=== PATIENT | female | born 1985 ===

== ENCOUNTER 2018-06-28 07:54 | Inpatient (IN) | payer MEDICAID, SELFPAY ==
[2018-06-28 08:58] VITALS: BMI 29.2
[2018-06-28] MEDS ORDERED: Lactated Ringer's 1,000 ML IV ONE (08:58)
[2018-06-28] MEDS ORDERED: Oxytocin 30 UNIT 30 UNITS/500 ML BAG IV ONE (09:00)
[2018-06-28] MEDS ORDERED: OXYTOCIN/0.9 % NS 20 UNIT/1,000 ML BAG IV SCH (09:00)
[2018-06-28] MEDS ORDERED: Lidocaine 1% Inj (20ml) ONE (09:27)
[2018-06-28] MEDS ORDERED: Fentanyl/Bupivacaine HCl 250 ML EPI ONE (09:30)
[2018-06-28 10:03] LABS: BASO # 0.1 K/uL (0.0-0.2); BASO % 0.5 % (0.0-2.0); EOS % 0.1 % (0.0-4.0); HEMOGLOBIN 12.9 g/dL (12.0-16.0); LYMPH # 1.7 K/uL (1.0-4.3); LYMPH % 15.8 % (20.0-40.0); MEAN CELL VOLUME 88.2 fl (81.0-99.0); MEAN CORPUSCULAR HEMOGLOBIN 29.4 pg (27.0-31.0); MEAN CORPUSCULAR HGB CONC 33.4 g/dL (33.0-37.0); MEAN PLATELET VOLUME 9.2 fl (7.2-11.7); MONO # 0.5 K/uL (0.0-0.8); MONO % 4.8 % (0.0-10.0); NEUT # 8.7 K/uL (1.8-7.0); NEUT % 78.8 % (50.0-75.0); NRBC % 0.1 % (0.0-0.0); RBC 4.38 Mil/uL (3.80-5.20); RED CELL DISTRIBUTION WIDTH 14.7 % (11.5-14.5)
[2018-06-28 10:11] LABS: ALBUMIN 3.9 g/dL (3.5-5.0); ALT/SGPT 16 U/L (9-52); AST/SGOT 21 U/L (14-36); BLOOD UREA NITROGEN 7 mg/dl (7-17); CALCIUM 9.9 mg/dL (8.4-10.2); GFR NON-AFRICAN AMERICAN > 60
[2018-06-28] MEDS: Lactated Ringer's 1,000 ML IV SCH ×2 (10:15→11:24)
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
--- NOTE | 2018-06-28 13:21 | OBDS ---
DELIVERY PERSONNEL Delivery Doctor: Italo Diaz MD Deckhand Clam Dredge: Yolanda Allen RN Resident: Harris MD MATERNAL INFORMATION Medications in Delivery: Pitocin Provider Comments: of live female infant over intact perineum in OA presentation, 05/16, followed by shoulders and rest of infant atraumatically, mouth and nose suctioned, cord clamped and cut, infa nt placed in warmer, fundus firm, DDF=[id number], perineal abrasion repaired wtih 3-0 Vicryl rapide, pt ot herwise tolerated procedure well LABOR SUMMARY EDC: 06/21/2018 00:00 No. Babies in Womb: 1 Attempted: No Labor Anesthesia: Intrathecal LABOR INFORMATION Reason for Induction: Postterm Onset of Labor: 06/28/2018 10:25 Group B Beta Strep: Negative Steroids Given: None Reason Steroids Not Administered: Not Applicable MEMBRANES Membranes Rupture Method: Artificial Rupture of Membranes: 06/28/2018 10:25 Amniotic Fluid Color: Clear Amniotic Fluid Amount: Scant Amniotic Fluid Odor: None BABY A INFORMATION Born in Route : No : N/A PRESENTATION/POSITION BABY A Presentation: Cephalic INFANT INFORMATION BABY A Gestational Age at Delivery: 41.0 Gestational Status: Term IDENTIFICATION/MEDS BABY A ID Band Number: [id number] ID Band Location: Left Leg; Left Arm
[2018-06-28] MEDS ORDERED: Benzocaine/Menthol SPRAY TOP PRN (13:26)
[2018-06-29 06:45] LABS: BASO % 0.2 % (0.0-2.0); EOS % 0.5 % (0.0-4.0); HEMOGLOBIN 9.6 g/dL (12.0-16.0); LYMPH # 2.4 K/uL (1.0-4.3); MEAN CELL VOLUME 88.8 fl (81.0-99.0); MEAN CORPUSCULAR HEMOGLOBIN 30.2 pg (27.0-31.0); MEAN PLATELET VOLUME 8.4 fl (7.2-11.7); MONO # 0.6 K/uL (0.0-0.8); MONO % 7.2 % (0.0-10.0); NEUT # 5.6 K/uL (1.8-7.0); NEUT % 64.1 % (50.0-75.0); RBC 3.19 Mil/uL (3.80-5.20); RED CELL DISTRIBUTION WIDTH 14.8 % (11.5-14.5); WHITE BLOOD COUNT 8.7 K/uL (4.8-10.8)
--- NOTE | 2018-06-29 09:52 | OBPPN ---
Datetime: 06/29/2018 06:23 PP Pain Prov: Within normal limits PP Nausea Prov: Denies PP Flatus Prov: Yes PP BM Prov: No PP Breasts Prov: Not Done PP Heart Prov: Normal PP Lungs Prov: Normal PP Abdomen/Uterus Prov: Normal PP Lochia Prov: Normal PP Vulva/Perineum Prov: Normal PP CVA Tenderness Prov: Normal PP Extremities Prov: Normal PP C/S Incision Prov: Not Applicable PP Progress Prov: Normal PP Impression Prov: Normal progression PP Plan Prov: Continue present management PP Progress Note Prov: Post- note S: Patient seen this morning at bedside, she is now s/p on 06/28/18, today is PPD 1. Pt reports no complaints today. Reports minimal abdominal pain but is tolerable with pain medication. She is tolerating PO intake w/o N/V, ambulating to bathroom without any difficulties, lochia is jose lar to menses in volume, Breast feeding w/o difficulty and supplementing with formula. Patient report s flatus but no BM as of yet. O: VS WNL PE: Patient is resting comfortably in her hospital bed. In no acute distress. HEENT: EOMI, Mucous membrane moist. RESP: Clear air entry bilaterally. CV: RRR, no murmurs, gallops or rubs. ABD: soft, non-tender, uterus firm below umbilicus LE: No edema, Ar's negative. A/P: 32 y/o now s/p on 06/28/18, today is PPD1- normal post- progression. -Encourage ambulation -Encouraged to continue -PNV 1 tab PO daily -Ibuprofen 600mg 1 tab Q6h prn for mild-mod pain -Anticipate discharge tomorrow, 06/30/18 Lidia Bermudez MD PGY1 IP PP Procedures: None
--- NOTE | 2018-06-30 09:45 | OBPPN ---
Datetime: 06/30/2018 06:04 PP Pain Prov: Within normal limits PP Nausea Prov: Denies PP Flatus Prov: Yes PP BM Prov: No PP Breasts Prov: Not Done PP Heart Prov: Normal PP Lungs Prov: Normal PP Abdomen/Uterus Prov: Normal PP Lochia Prov: Normal PP Vulva/Perineum Prov: Normal PP CVA Tenderness Prov: Not Done PP Extremities Prov: Normal PP C/S Incision Prov: Not Applicable PP Progress Prov: Normal PP Impression Prov: Normal progression PP Plan Prov: Continue present management; Discharge PP Progress Note Prov: S: Patient seen this morning at bedside, she is now s/p on 06/28, today is PPD 2. Pt reports no complaints today. Reports minimal abdominal pain but states is bet ter with pain medication. She is tolerating PO intake w/o N/V, ambulating to bathroom without any dif ficulties, lochia is less than menses in volume, Breast feeding w/o difficulty and supplementing with formula. Patient reports flatus but no BM as of yet. O: VS WNL PE: Patient is resting comfortably in her hospital bed. In no acute distress. HEENT: EOMI, Mucous membrane moist. RESP: Clear air entry bilaterally. CV: RRR, no murmurs, gallops or rubs. ABD: soft, non-tender, uterus firm below umbilicus LE: No edema, Ar's negative. A/P: 32 y/o now s/p on 06/28/18, today is PPD2- normal post- progression. Patient is stable to be D/C home. - Encourage ambulation - Encourage to continue - PNV 1 tab PO daily - Ibuprofen 600mg 1 tab Q6h prn for mild-mod pain - D/C home today, 06/30/18 Lidia Bermudez MD PGY1 The patient was seen with resident I agree with the note IP PP Procedures: None Vital Signs Provider PP: Reviewed; Within Normal Limits
[2018-07-01 01:25] VITALS: BP 113/71; PULSE 76; RESP 20; TEMP 98.6; O2SAT 98
== END 2018-06-30 17:50 | disposition home or self-care (01) | DRG 373 ==
LOC: H.EROB2 07:54 → H.L&D 08:58 → H.OB/GYN 16:00
PROVIDERS: ADMIT Obstetrics & Gynecology; ATTEND Obstetrics & Gynecology
PROC: 10E0XZZ Delivery of Products of Conception, External Approach (ICD-10-PCS; principal; 2018-06-28)
PROC: 0HQ9XZZ Repair Perineum Skin, External Approach (ICD-10-PCS; 2018-06-28)
PROC: 10907ZC Drainage of Amniotic Fluid, Therapeutic from Products of Conception, Via Natural or Artificial Opening (ICD-10-PCS; 2018-06-28)
PROC: 4A1HXCZ Monitoring of Products of Conception, Cardiac Rate, External Approach (ICD-10-PCS; 2018-06-28)
DX: O48.0 Post-term pregnancy (principal); O70.0 First degree perineal laceration during delivery; Z3A.41 41 weeks gestation of pregnancy; Z37.0 Single live birth; Z86.32 Personal history of gestational diabetes